=== PATIENT | female | born 1970 | race American Indian/Alaskan Native ===

== ENCOUNTER 2017-11-24 15:08 | Outpatient (CLI) | payer MEDICAID ==
--- NOTE | 2017-11-24 17:29 | XRay Report ---
FINAL REPORT PROCEDURE: AP pelvis and right hip series TECHNIQUE: LEFT hip radiographs, 2 views each, including AP view of the pelvis. HISTORY: PAIN IN RIGHT HIP COMPARISON: No prior studies are available for comparison. FINDINGS: No evidence of fracture or dislocation. Right hip joint is well preserved. Small ring osteophytic spur projecting along the articular margin of the left femoral head. SI joints unremarkable. Small nonspecific calcification seen in the lower pelvis likely representing phleboliths.. IMPRESSION: Osteophytic spurring projecting in the left hip joint as described consistent with osteoarthritis. No acute abnormalities are identified.
--- NOTE | 2017-11-24 17:30 | XRay Report ---
FINAL REPORT PROCEDURE: XR KNEE 3V RT TECHNIQUE: Right knee radiographs, AP, lateral and oblique views. CPT 47911 HISTORY: SWELLING OF RIGHT KNEE COMPARISON: No prior studies are available for comparison. FINDINGS: Fracture (s) and/or Dislocation(s): None . Alignment: Normal . Joint space(s): Normal . Soft tissues: Normal . Bone mineralization: Normal . Foreign bodies: None . There is partial ossification of the quadriceps tendon insertion on the patella. IMPRESSION: Negative exam. No acute abnormalities are identified..
== END 2017-11-24 15:09 | disposition home or self-care (01) ==
LOC: XRAY 15:08
PROVIDERS: ATTEND Internal Medicine
DX: M76.891 Other specified enthesopathies of right lower limb, excluding foot (principal); M25.561 Pain in right knee; M25.461 Effusion, right knee; M25.551 Pain in right hip

== ENCOUNTER 2019-02-16 15:30 | Outpatient (CLI) | payer MEDICAID, OTHER | END 2019-02-16 15:31 | disposition home or self-care (01) | LOC: LABHHL 15:30 | PROVIDERS: ATTEND Surgery | DX: N63.12 Unspecified lump in the right breast, upper inner quadrant (principal) | CPT/HCPCS: 88305; 88342 ==

== ENCOUNTER 2019-03-26 05:52 | Day surgery (SDC) | payer MEDICAID ==
[~2019-03-26 05:52] MED LIST: MARCAINE 0.25% INFILTRATI ONE; XYLOCAINE 1% 20 mL INFILTRATI ONE
[2019-03-26] MEDS ORDERED: NACL BACTERIOSTATIC INFILTRATI ONE (06:37)
[2019-03-26] MEDS ORDERED: ANCEF/STERILE WATER 2 GM/20 ML IV NR (07:00)
[2019-03-26] MEDS ORDERED: VERSED IV NR (07:19)
[2019-03-26] MEDS ORDERED: LACTATED RINGERS 1,000 ML IV SCH (07:20)
[2019-03-26] MEDS ORDERED: XYLOCAINE 1% 20 mL ONE (07:21)
[2019-03-26] MEDS ORDERED: MARCAINE 0.25% INFILTRATI ONE ×3 (07:21→08:20)
[2019-03-26] MEDS ORDERED: SUBLIMAZE ONE (07:33)
[2019-03-26] MEDS ORDERED: DIPRIVAN 10 MG/ML IV ONE (07:33)
[2019-03-26] MEDS ORDERED: XYLOCAINE MPF 2% ONE (07:33)
[2019-03-26] MEDS ORDERED: VERSED ONE (07:33)
[2019-03-26] MEDS ORDERED: ZOFRAN IV PRN (07:34)
[2019-03-26] MEDS ORDERED: DILAUDID IV PRN (07:34)
--- NOTE | 2019-03-26 07:34 | Anesthesia Day of Surgery ---
Anesthesia Day of Surgery - Day of Surgery Patient Examined: Yes Patient H&P Reviewed: Yes Patient is NPO: Yes
--- NOTE | 2019-03-26 07:34 | Anesthesia Consultation ---
Anesthesia Consult and Med Hx Date of service: 03/26/19 - Airway Anesthetic Teeth Evaluation: Good ROM Head & Neck: Adequate Mental/Hyoid Distance: Adequate Mallampati Class: Class I - Pulmonary Exam CTA: Yes - Cardiac Exam Cardiac Exam: RRR - Pre-Operative Health Status ASA Pre-Surgery Classification: ASA2 Proposed Anesthetic Plan: General - Pulmonary Hx Smoking: Yes (CIGARETTES & MARIJUANA) Hx Asthma: No COPD: No Hx Sleep Apnea: No (SNORES) - Cardiovascular System Hx Hypertension: Yes Hx Heart Attack/AMI: No Hx Angina: No - Central Nervous System Hx Psychiatric Problems: Yes (PTSD) - Hematic Hx Anemia: No - Other Systems Hx Alcohol Use: Yes (OCC.) Hx Substance Use: Yes (MARIJUANA- 2 JOINTS/DAY) Hx Cancer: No
[2019-03-26] MEDS ORDERED: DECADRON ONE (08:13)
[2019-03-26] MEDS ORDERED: ZOFRAN ONE (08:13)
[2019-03-26] MEDS ORDERED: XYLOCAINE 1% 20 mL INFILTRATI ONE ×2 (08:20)
[2019-03-26] MEDS ORDERED: DILAUDID ONE (08:23)
--- NOTE | 2019-03-26 09:58 | Post Operative Note ---
Date of procedure: 03/26/19 Pre-op diagnosis: Right breast mass Post-op diagnosis: same Procedure: Right Breast Mass Excisional Biopsy Anesthesia: AUGUSTINEA Surgeon: IVANIA EHRNANDEZ Wood Casket Assembler: ALE GODINEZ (Machelle Del Rosario) Estimated blood loss: minimal Pathology: list Specimen disposition: to lab Condition: stable Disposition: PACU
--- NOTE | 2019-03-26 10:06 | Operative Report ---
Operative Report Operative Report: Operative Report: Date of Service: 2018 Preoperative diagnosis: Right breast mass of the upper inner quadrant Postoperative diagnosis: Same Procedure: Right breast mass excisional biopsy of the upper inner quadrant Surgeon: Eunice Copeland M.D. Dean Of Chapel: Shannon Fernandez M.D. Findings: Right breast mass at 1:30 o'clock position 2 cm from the nipple with excisional biopsy performed, radiograph specimen with clip present Complications: None Drains: None Estimated blood loss: Minimal Disposition: PACU in good condition Indication for operative procedure: This is a 48-year-old lady with known right breast mass at the 1:30 position, recent biopsy performed with findings of PASH. Recommendations were for excisional biopsy given increase in size and palpable abnormality. Patient wanted to proceed with right breast excisional biopsy as well. Patient wished to proceed with the above procedure. The patient was procedure in detail: The patient was taken to the operating room and was laid supine. General anesthesia was administered. The right breast mass was palpable at the 1:30 o'clock position 2 cm from the nipple, mobile and soft. The right breast was prepped and draped in the normal sterile operative fashion. Timeout was performed. A periareolar breast incision was made with a 15 blade knife around the 1:00 position with dissection taken down to the subcutaneous tissues. The mass was encountered and was dissected free with the aid of the Bovie cautery, mass removed in two specimens. The specimen was sent to pathology and radiograph specimen with clip present. Hemostasis was then obtained using the Bovie cautery. Breast cavity was anesthesized with 1% lidocaine and quarter percent marcaine. The breast cavity was irrigated and suctioned. The deep breast tissues were approximated and closed using interrupted 3-0 Vicryl and skin brought together and closed using a running 4-0 Monocryl followed by dermabond. She tolerated surgery very well and was awakened from anesthesia without any complication and transported to PACU in good condit ion.
--- NOTE | 2019-03-26 10:08 | Short Stay Summary ---
Short Stay Documentation Date of service: 03/26/19 - History H&P: obtained from office - Allergies and Medications Current Medications: Allergies No Known Allergies Allergy (Unverified 08/12/13 17:54) Home Medications Medication Instructions Recorded Confirmed Last Taken Type Aspirin [Baby Aspirin] 81 mg PO QDAY 08/12/13 03/23/19 03/24/19 History Lisinopril [Zestril] 40 mg PO QDAY 08/12/13 03/23/19 03/25/19 History Ergocalciferol [Vitamin D2] 50,000 unit PO QWEEK 03/23/19 03/23/19 03/24/19 History Ferrous Sulfate 65 mg PO DAILY 03/23/19 03/23/19 03/25/19 History Metoprolol 100 mg PO DAILY 03/23/19 03/23/19 03/25/19 History Simvastatin 40 mg PO DAILY 03/23/19 03/23/19 03/24/19 History Triamterene-Hctz 75-50 mg Tab 75 mg PO DAILY 03/23/19 03/23/19 03/25/19 History HYDROcodone/APAP 5-325 [[place] 1 each PO Q6HR PRN #12 tablet 03/26/19 Unknown Rx 5/325] Active Medications Cefazolin Sodium (Ancef/Sterile Water 2 Gm/20 Ml) 2 gm IV PREOP NR Stop: 03/26/19 23:59 Hydromorphone HCl (Dilaudid) 0.5 mg IV Q10MIN PRN PRN Reason: Pain , Severe (7-10) Stop: 03/26/19 18:00 Lactated Ringer's (Lactated Ringers) 1,000 mls @ 100 mls/hr IV DIRECT ROSI Last Admin: 03/26/19 07:39 Dose: 100 mls/hr Documented by: Midazolam HCl (Versed) 2 mg IV ONCE NR Stop: 03/26/19 23:59 Last Admin: 03/26/19 07:39 Dose: 2 mg Documented by: Ondansetron HCl (Zofran) 4 mg IV ONCE PRN PRN Reason: Nausea And Vomiting Stop: 03/26/19 18:00 - Brief post op/procedure progress note Date of procedure: 03/26/19 Pre-op diagnosis: Right Breast Mass Post-op diagnosis: same Procedure: Right Breast Mass Excisional Biopsy Anesthesia: JOSE ELIAS Surgeon: IVANIA HERNANDEZ Registrar Nurses' Registry: ALE GODINEZ (Machelle Del Rosario) Estimated blood loss: minimal Pathology: list Specimen disposition: to lab Condition: stable - Disposition Condition at discharge: Stable Disposition: DC-01 TO HOME OR SELFCARE Short Stay Discharge Plan Activity: no driving until cleared by PCP Weight Bearing Status: Full Weight Bearing Diet: regular Wound: keep clean and dry, per your surgeon's advice Special Instructions: no heavy lifting, other (Keep binder on) Follow up with: IVANIA HERNANDEZ MD [Staff Physician] - 7 Days Prescriptions: HYDROcodone/APAP 5-325 [[place] 5/325] 1 each PO Q6HR PRN #12 tablet PRN Reason: Pain
[2019-03-26 11:18] VITALS: BP 123/70
--- NOTE | 2019-03-26 13:11 | Post Anesthesia Evaluation ---
- Post Anesthesia Evaluation Patient Participated: Yes Airway Patent: Yes Stable Respiratory Function: Yes Nausea/Vomiting: No Temp > 96.8F: Yes Pain Manageable: Yes Adequeate Hydration: Yes Anesthesia Complications: No Block Receding Appropriately: Not Applicable Patient on Ventilator: No
--- NOTE | 2019-03-27 10:03 | Mammography Report ---
SPECIMEN RADIOGRAPH RIGHT BREAST INDICATION: POST EXC BX. COMPARISON: 02/05/2019 mammogram and right breast ultrasound from [facility] FINDINGS: A biopsy clip is identified in one of 3 specimens. A distinct mass is not discernible on these images . IMPRESSION: Excision of the targeted biopsy clip. However, excision of a mass cannot be confirmed mammographicall y. Signer Name: Chau Lay MD Signed: 03/27/2019 9:58 AM Workstation Name: [id number]
== END 2019-03-26 11:10 | disposition home or self-care (01) ==
LOC: OR 05:52
PROVIDERS: ATTEND Surgery
DX: N63.12 Unspecified lump in the right breast, upper inner quadrant (principal); N60.81 Other benign mammary dysplasias of right breast; D24.1 Benign neoplasm of right breast; G43.909 Migraine, unspecified, not intractable, without status migrainosus; E78.00 Pure hypercholesterolemia, unspecified; I10 Essential (primary) hypertension; K21.9 Gastro-esophageal reflux disease without esophagitis; F41.9 Anxiety disorder, unspecified; F17.210 Nicotine dependence, cigarettes, uncomplicated; Z72.89 Other problems related to lifestyle; Z79.82 Long term (current) use of aspirin; Z80.3 Family history of malignant neoplasm of breast; Z90.710 Acquired absence of both cervix and uterus; Z98.890 Other specified postprocedural states
CPT/HCPCS: 19125; 76098; 82803; 88305; 88341; 88342; J0690; J1100; J1170; J2250; J2405; J2704; J3010; J7120; 88307